=== PATIENT | female | born 2000 | race Hispanic/Latino ===

== ENCOUNTER 2018-01-26 07:59 | Emergency (ER) | payer SELFPAY ==
[2018-01-26 08:06] VITALS: BMI 24.7
[2018-01-26 08:08] VITALS: O2SAT 100
[2018-01-26] MEDS ORDERED: Penicillin G Benzathine 1.2 Mill Unit/2 ml Syr IM ONE ×2 (09:13→09:22)
[2018-01-26] MEDS ORDERED: Dexamethasone 4 mg/1 ml IM STA (09:13)
[2018-01-26] MEDS ORDERED: Dexamethasone 4 mg/1 ml ONE (09:19)
--- NOTE | 2018-01-26 09:39 | C.PDOC ---
History Of Present Illness 17 y/o female presents to ED with complaints of sore throat and fever since she woke up this morning. Patient denies nausea, vomiting, cough, runny nose, recent travel or any other complaints at this time. Time Seen by Provider: 01/26/18 08:29 Chief Complaint (Nursing): ENT Problem History Per: Patient History/Exam Limitations: None Onset/Duration Of Symptoms: Days Current Symptoms Are (Timing): Still Present Past Medical History Reviewed: Historical Data, Nursing Documentation, Vital Signs Vital Signs: Last Vital Signs Temp 100.5 F H 01/26/18 08:06 Pulse 103 H 01/26/18 08:06 Resp 18 01/26/18 08:06 BP 119/83 01/26/18 08:06 Pulse Ox 100 01/26/18 09:39 - Medical History PMH: No Chronic Diseases Surgical History: No Surg Hx Family History: States: No Known Family Hx - Social History Hx Alcohol Use: No Hx Substance Use: No - Immunization History Hx Tetanus Toxoid Vaccination: Yes Hx Influenza Vaccination: No Hx Pneumococcal Vaccination: No Review Of Systems Constitutional: Positive for: Fever. Negative for: Chills ENT: Positive for: Throat Pain Cardiovascular: Negative for: Chest Pain Respiratory: Negative for: Cough, Shortness of Breath Gastrointestinal: Negative for: Nausea, Vomiting Physical Exam - Physical Exam Appears: Non-toxic, No Acute Distress Skin: Warm, Dry, No Rash Head: Atraumatic, Normacephalic Eye(s): left: Normal Inspection Ear(s): Bilateral: Normal Oral Mucosa: Moist Throat: Erythema, Exudate, Other (Bilateral tonsillar swelling) Neck: Normal ROM, Supple Cardiovascular: Rhythm Regular Respiratory: Normal Breath Sounds, No Rales, No Rhonchi, No Wheezing Gastrointestinal/Abdominal: Soft, No Tenderness, No Guarding, No Rebound Neurological/Psych: Oriented x3, Normal Speech, Normal Cognition ED Course And Treatment O2 Sat by Pulse Oximetry: 100 (RA) Pulse Ox Interpretation: Normal Disposition - Disposition Referrals: Deandre Kiser MD [Medical Doctor] - Disposition: HOME/ ROUTINE Disposition Time: 09:50 Additional Instructions: Follow up with the medical doctor within 1-2 days. Return if worsened. Prescriptions: Ibuprofen Susp [Motrin Oral Susp] 400 mg PO Q6 PRN #250 ml PRN Reason: Fever Instructions: Strep Throat in Children Forms: [facility] (Upper Sorbian), School Excuse - Clinical Impression Clinical Impression: Strep pharyngitis - PA / AD SETTER / Resident Statement MD/DO has reviewed & agrees with the documentation as recorded. - Scribe Statement The provider has reviewed the documentation as recorded by the Tomibcharles Renteria All medical record entries made by the Ortega were at my direction and personally dictated by me. I have reviewed the chart and agree that the record accurately reflects my personal performance of the history, physical exam, medical decision making, and the department course for this patient. I have also personally directed, reviewed, and agree with the discharge instructions and disposition.
[2018-01-26 09:54] VITALS: BP 109/71; PULSE 100; TEMP 98
[2018-01-26 10:12] VITALS: RESP 18
== END 2018-01-26 10:08 | disposition home or self-care (01) ==
LOC: C.ER 07:59
DX: J02.0 Streptococcal pharyngitis (principal)
CPT/HCPCS: 96372; 99283; J0561; J1100

== ENCOUNTER 2018-02-06 08:28 | Emergency (ER) | payer MEDICAID ==
[2018-02-06 09:10] VITALS: BMI 23.0
[2018-02-06 10:35] LABS: BASO # 0.1 K/uL (0.0-0.2); BASO % 0.4 % (0.0-2.0); EOS # 0.1 K/uL (0.0-0.7); EOS % 0.5 % (0.0-4.0); HEMOGLOBIN 13.6 g/dL (11.0-16.0); LYMPH # 2.9 K/uL (1.0-4.3); LYMPH % 19.5 % (20.0-40.0); MEAN CELL VOLUME 86.6 fL (81.0-99.0); MEAN CORPUSCULAR HEMOGLOBIN 29.9 pg (27.0-31.0); MEAN CORPUSCULAR HGB CONC 34.5 g/dL (33.0-37.0); MEAN PLATELET VOLUME 9.7 fL (7.2-11.7); MONO # 1.1 K/uL (0.0-0.8); MONO % 7.3 % (0.0-10.0); NEUT # 10.7 K/uL (1.8-7.0); NEUT % 72.3 % (50.0-75.0); RBC 4.55 Mil/uL (3.80-5.20); RED CELL DISTRIBUTION WIDTH 12.5 % (11.5-14.5); WHITE BLOOD COUNT 14.8 K/uL (4.8-10.8)
[2018-02-06 10:46] LABS: ALB/GLOB RATIO 1.2 (1.0-2.1); ALBUMIN 5.1 g/dL (3.5-5.0); ALT/SGPT 10 U/L (9-52); AST/SGOT 24 U/L (14-36); BLOOD UREA NITROGEN 14 mg/dL (7-17); CALCIUM 9.8 mg/dl (8.6-10.4); GFR AFRICAN-AMERICAN > 60; GFR NON-AFRICAN AMERICAN > 60
[2018-02-06] MEDS ORDERED: Sodium Chloride 0.9% 1,000 ML IV ONE (11:19)
--- NOTE | 2018-02-06 11:33 | C.PDOC ---
History Of Present Illness 17 year old female presents to the ED c/o persistent sore throat for the past 2 weeks. Patient was seen in the ED on 01/26/18 and at that time she was given Decadron and Penicillin IM. Patient reports there was improvement for several days after but then symptoms returned. Patient reports 5-6 days of sore throat. Patient states she has been taking amoxicillin 500 3 times a day which was her fathers (for last 2 days). Patient denies cough, runny nose, rash, vomiting. rash. Time Seen by Provider: 02/06/18 09:21 Chief Complaint (Nursing): ENT Problem History Per: Patient History/Exam Limitations: None Onset/Duration Of Symptoms: Days Current Symptoms Are (Timing): Still Present Quality (Mouth/Throat): Tenderness Symptoms Have Been: Continuous Severity: Moderate Recent Aspirin Use: No Past Medical History Reviewed: Historical Data, Nursing Documentation, Vital Signs Vital Signs: Last Vital Signs Temp 99.4 F 02/06/18 09:10 Pulse 96 H 02/06/18 09:10 Resp 18 02/06/18 09:10 BP 121/80 02/06/18 09:10 Pulse Ox 100 02/06/18 13:01 - Medical History PMH: No Chronic Diseases Surgical History: No Surg Hx Family History: States: No Known Family Hx - Social History Hx Alcohol Use: No Hx Substance Use: No - Immunization History Hx Tetanus Toxoid Vaccination: Yes Hx Influenza Vaccination: No Hx Pneumococcal Vaccination: No Review Of Systems Constitutional: Negative for: Fever, Chills ENT: Positive for: Throat Pain. Negative for: Nose Discharge, Nose Congestion, Throat Swelling Cardiovascular: Negative for: Chest Pain Respiratory: Negative for: Shortness of Breath Gastrointestinal: Negative for: Nausea, Vomiting Skin: Negative for: Rash Physical Exam - Physical Exam Appears: Well, Non-toxic, Other (Mildly uncomfortable) Skin: Normal Color, Warm, Dry Eye(s): bilateral: Normal Inspection Ear(s): Bilateral: Normal Nose: No Discharge Oral Mucosa: Moist, No Drooling, No Trismus Tongue: Other (strawberry) Throat: Erythema (left tonsil), Exudate (left tonsil), Other (left tonsil swelling, touching the uvula) Neck: Supple Lymphatic: Adenopathy (left sided) Cardiovascular: Rhythm Regular Respiratory: Normal Breath Sounds, No Rales, No Rhonchi, No Wheezing Extremity: Normal ROM, No Tenderness, No Swelling Neurological/Psych: Oriented x3 Gait: Steady ED Course And Treatment - Laboratory Results Result Diagrams: 02/06/18 10:28 02/06/18 10:28 O2 Sat by Pulse Oximetry: 100 (ON RA) Pulse Ox Interpretation: Normal - CT Scan/US CT neck Other Rad Studies (CT/US): Read By Radiologist, Radiology Report Reviewed CT/US Interpretation: PROCEDURE: CT NECK WITH CONTRAST. HISTORY: left sided tonsillar swelling, pain r/o abscess. COMPARISON: None. TECHNIQUE: CT of the neck with intravenous contrast. Coronal and sagittal reformats generated. Intravenous contrast dose: 100 cc Visipaque 320. Radiation dose: DLP 305.18 mGy -cm. This CT exam was performed using one or more of the following dose reduction techniques: Automated exposure control, adjustment of the mA and/or kV according to patient size, and/or use of iterative reconstruction technique. FINDINGS: NASOPHARYNX: Unremarkable. SUPRAHYOID NECK: Abscess involving the left palatine tonsil poorly encapsulated measuring 2.2 cm. Considerable adjacent edema identified with narrowing of the or pharyngeal cavity. This extends to the side wall of the oropharynx. The left submandibular gland is asymmetrically enlarged. There is evidence of adjacent submandibular lymphadenopathy presumably reactive. This cephalocaudal dimension is 2.6 cm. The inferior extent of the edema is at the level of the vallecula and superior aspect of the left piriform sinus. INFRAHYOID NECK: Unremarkable larynx, hypopharynx, and supraglottic space. Vocal cords intact. MASS: None. GLANDS: Parotid glands unremarkable. Normal size thyroid gland, without nodule. LYMPH NODES: Reactive lymphadenopathy and 3 parapharyngeal and submandibular lymph node chains the left. CERVICAL SPINE: No fracture or focal lesion. VASCULAR STRUCTURES: Unremarkable. OTHER FINDINGS: None. IMPRESSION: Left palatine tonsil abscess. Adjacent inflammatory changes in the oropharynx. Asymmetric involvement, edema involving the left submandibular gland. Reactive lymphadenopathy noted. No abnormalities with respect to the infrahyoid neck. Progress Note: Plan: Blood work, CT soft tissue neck ordered. Patient given IV toradol and Clindamycin, IV NS bolus. - Physician Consult Information Physician Contacted: Chris Preston Outcome Of Conversation: Discussed patient with ENT, will come eval/drain patient in ED approx 4pm. Disposition - Disposition Disposition Time: 13:05 Condition: STABLE Forms: [facility] (Macedonian) - Clinical Impression Clinical Impression: Tonsillar abscess - Scribe Statement The provider has reviewed the documentation as recorded by the Scribe Humberto Metzger All medical record entries made by the Scribe were at my direction and personally dictated by me. I have reviewed the chart and agree that the record accurately reflects my personal performance of the history, physical exam, medical decision making, and the department course for this patient. I have also personally directed, reviewed, and agree with the discharge instructions and disposition. Physician Patient Turnover Patient Signed Over To: Jenn Sahni Handoff Comments: pending eval/drainage by Dr. Preston
[2018-02-06] MEDS ORDERED: Sodium Chloride 0.9% 1,000 ML ONE (11:35)
[2018-02-06] MEDS ORDERED: Iodixanol 320 MG/ML 100 ML BOTTLE IV ONE (11:44)
[2018-02-06] MEDS ORDERED: Clindamycin 300 MG in Sodium Chloride 0.9% 50 ML IVPB STA (12:42)
--- NOTE | 2018-02-06 12:59 | CT ---
PROCEDURE: CT NECK WITH CONTRAST HISTORY: left sided tonsillar swelling, pain r/o abscess COMPARISON: None TECHNIQUE: CT of the neck with intravenous contrast. Coronal and sagittal reformats generated. Intravenous contrast dose: 100 cc Visipaque 320 Radiation dose: DLP 305.18 mGy-cm This CT exam was performed using one or more of the following dose reduction techniques: Automated exposure control, adjustment of the mA and/or kV according to patient size, and/or use of iterative reconstruction technique. FINDINGS: NASOPHARYNX: Unremarkable. SUPRAHYOID NECK: Abscess involving the left palatine tonsil poorly encapsulated measuring 2.2 cm. Considerable adjacent edema identified with narrowing of the or pharyngeal cavity. This extends to the side wall of the oropharynx. The left submandibular gland is asymmetrically enlarged. There is evidence of adjacent submandibular lymphadenopathy presumably reactive. This cephalocaudal dimension is 2.6 cm. The inferior extent of the edema is at the level of the vallecula and superior aspect of the left piriform sinus. INFRAHYOID NECK: Unremarkable larynx, hypopharynx, and supraglottic space. Vocal cords intact. MASS: None. GLANDS: Parotid glands unremarkable. Normal size thyroid gland, without nodule. LYMPH NODES: Reactive lymphadenopathy and 3 parapharyngeal and submandibular lymph node chains the left. CERVICAL SPINE: No fracture or focal lesion. VASCULAR STRUCTURES: Unremarkable. OTHER FINDINGS: None. IMPRESSION: Left palatine tonsil abscess. Adjacent inflammatory changes in the oropharynx. Asymmetric involvement, edema involving the left submandibular gland. Reactive lymphadenopathy noted. No abnormalities with respect to the infrahyoid neck.
[2018-02-06] MEDS ORDERED: Lidocaine 1% Inj (20ml) INFIL ONE (13:03)
[2018-02-06] MEDS ORDERED: Lidocaine 2% w Epi 1:200,000 Pf Inj INJ ONE ×2 (17:47→18:00)
[2018-02-06 18:22] VITALS: RESP 16
[2018-02-06 18:23] VITALS: BP 131/78; PULSE 668; TEMP 99.2; O2SAT 96
--- NOTE | 2018-02-07 03:31 | OP ---
PROCEDURE DATE: 02/06/2018 PREOPERATIVE DIAGNOSIS: Left peritonsillar abscess. POSTOPERATIVE DIAGNOSIS: Left peritonsillar abscess. PROCEDURE: Incision and drainage of left peritonsillar abscess. SIGNIFICANT FINDINGS: Left peritonsillar abscess. DESCRIPTION OF PROCEDURE: The patient was placed in a seated position. T-he left peritonsillar area was injected with lidocaine with epinephrine. A #11 blade was used to make an incision was made in the left peritonsillar area. dissection was done, pus was noted to be coming out. Loculations have broken with a clamp. Bleeding was controlled with time. The patient tolerated the procedure well. Chris Preston MD
== END 2018-02-06 18:34 | disposition home or self-care (01) ==
LOC: C.ER 08:28
DX: J36 Peritonsillar abscess (principal)
CPT/HCPCS: 42700; 70491; 80053; 85025; 96361; 96365; 96375; 96376; 99284; J1885; J7030; Q9967